=== PATIENT | female | born 1970 | race Caucasian/White ===

== ENCOUNTER 2017-01-04 08:28 | Day surgery (SDC) | payer MEDICAID ==
[~2017-01-04 08:28] MED LIST: Acetaminophen/HYDROcodone 325-5 MG Tab PO PRN; Lactated Ringers 1,000 ML IV SCH; Sodium Chloride 0.9% 10 ML Syringe FLUSH PRN; ceFAZolin 1 GM in Sodium Chloride 0.9% 50 ML IV ONE
[2017-01-04] MEDS ORDERED: ceFAZolin 1 GM in Sodium Chloride 0.9% 100 ML IV SCH (09:30)
[2017-01-04] MEDS ORDERED: ceFAZolin 1 GM in Sodium Chloride 0.9% 100 ML IV ONE (09:30)
[2017-01-04] MEDS ORDERED: Midazolam 1 MG/ML 5 ML SDV ONE (12:20)
[2017-01-04] MEDS ORDERED: Lidocaine 0.5% 50 ML SDV ONE (12:20)
[2017-01-04 15:12] VITALS: BP 132/60
--- NOTE | 2017-01-08 07:06 | OR ---
DATE OF OPERATION: 01/04/2017 PREOPERATIVE DIAGNOSIS: Right trigger thumb. POSTOPERATIVE DIAGNOSIS: Right trigger thumb. PROCEDURE PERFORMED: Right trigger thumb release. ANESTHESIA: General. HASH SLINGER: Shayne Prado RN. SPECIMENS: None. DRAINS: None. ESTIMATED BLOOD LOSS: Minimal. COMPLICATIONS: None apparent. DESCRIPTION OF PROCEDURE: After informed consent was obtained, the patient was brought to the operating room where a [place] block was performed uneventfully. . The right upper extremity was prepped and draped sterilely, a time out was held, and antibiotics were confirmed. I opened the skin sharply in a transverse fashion over the A1 heriberto dissecting sharply through the skin with scissor dissection through the subcutaneous tissue to protect the neurovascular structures. The A1 heriberto was identified and released longitudinally. We are then able to demonstrate all flexion and extension without triggering. We copiously irrigated and closed with 4-0 nylon, sterile dressings were applied, and she was brought to the recovery room in stable condition. VINNIE/WENDI /[id number]
== END 2017-01-04 14:50 | disposition home or self-care (01) ==
LOC: LB.SDS 08:28
PROVIDERS: ATTEND Orthopaedic Surgery
DX: M65.311 Trigger thumb, right thumb (principal)
CPT/HCPCS: 26055; A9270; J0690; J2250; J7030

== ENCOUNTER 2017-03-23 21:42 | Emergency (ER) | payer OTHER, MEDICAID ==
[~2017-03-23 21:42] MED LIST changes: -Acetaminophen/HYDROcodone 325-5 MG Tab PO PRN; +Cephalexin 500 MG Cap ONE; -Lactated Ringers 1,000 ML IV SCH; -Sodium Chloride 0.9% 10 ML Syringe FLUSH PRN; -ceFAZolin 1 GM in Sodium Chloride 0.9% 50 ML IV ONE
--- NOTE | 2017-03-25 09:51 | ER ---
HISTORY OF PRESENT ILLNESS: The patient presented to the ER with an abrasion and laceration that was couple days old on her right elbow area. 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 She kept the area clean. There has been no further bleeding; however, she does have concern that there could be early infection starting. The patient is therefore here for evaluation of her wound. REVIEW OF SYSTEMS: CONSTITUTIONAL: The patient has had no fever or fatigue or weight loss. EYES: No vision changes. ENT: No ENT complaints of sore throat or ear pain or congestion. CARDIAC: No chest pain or palpitations. RESPIRATORY: No cough, shortness of breath, or wheezing. GASTROINTESTINAL: No nausea, vomiting, diarrhea, or heartburn. No dysuria. MUSCULOSKELETAL: No joint pains or limitations of motion. SKIN: No rashes other than her wound. Neurologic: No complaints of headache, weakness, or numbness. Psychiatric: No complaints of anxiety or depression. PHYSICAL EXAMINATION: GENERAL: Reveals a well-developed, well-nourished female. She is alert, she is oriented x3. She is in no acute distress. VITAL SIGNS: Temperature is 98.3, blood pressure is 132/68, pulse is 73, respirations 16. EYES: With normal conjunctivae and lids. NOSE: Clear. NECK: Supple. No thyromegaly. LYMPH: Exam is negative. EXTREMITIES: No limitations of motion. No joint inflammation. Her elbow is functioning completely normally. SKIN: Shows an abrasion with a small laceration present and a very small puncture, laceration is about 3 cm. No obvious signs of infection at this time. There is some discoloration due to bruising in the area. NEUROLOGICAL: Everything seems to be intact. She is able to move her extremities without any problems. Her cranial nerves are all intact. PSYCHIATRIC: Her judgment is normal. Memory is intact. She is oriented. ASSESSMENT: Laceration, abrasion, and contusion of her right elbow area. She was started on Keflex 500 mg p.o. t.i.d. for 7 days. She will follow up in clinic in about 48 hours for a wound check. The patient is current with her tetanus, and no tetanus shot was administered. SELINA/WENDI /[id number]
== END 2017-03-23 22:35 | disposition home or self-care (01) ==
LOC: LB.ED 21:42
DX: S51.011A Laceration without foreign body of right elbow, initial encounter (principal); W26.8XXA Contact with other sharp object(s), not elsewhere classified, initial encounter; Y99.0 Civilian activity done for income or pay
CPT/HCPCS: 99283; A9270

== ENCOUNTER 2017-07-16 21:40 | Emergency (ER) | payer MEDICAID ==
[2013-07-23 09:47] VITALS: BP 134/78
[2017-07-16] MEDS ORDERED: Acetaminophen/Codeine 300-30 MG Tab ONE (22:50)
[2017-07-16] MEDS ORDERED: Amoxicillin 500 MG Cap ONE (22:50)
--- NOTE | 2017-07-16 23:17 | EDM.PDOC ---
ED HPI GENERAL MEDICAL PROBLEM - General Chief Complaint: ENT Problem Stated Complaint: toothache Time Seen by Provider: 07/16/17 22:30 Source of Information: Reports: Patient History Limitations: Reports: No Limitations - History of Present Illness INITIAL COMMENTS - FREE TEXT/NARRATIVE: According to patient she has been having pain her right upper premolar tooth since last evening. She claims her dentist office is closed on wednesday. She did try taking ibuprofen and not better. Over the day she claims pain has gone form dull achy to throbbing now. No fever or chills. No swelling of the face. She claims she has appointment on wednesday for possible tooth excision. No fever or chills. No nausea or vomiting. Duration: Day(s): (2), Getting Worse Location: Reports: Other (tooth) Quality: Reports: Ache Severity: Moderate Improves with: Reports: None Worsens with: Reports: None Associated Symptoms: Denies: Fever/Chills, Loss of Appetite, Nausea/Vomiting, Rash, Weakness - Related Data Allergies Allergy/AdvReac Type Severity Reaction Status Date / Time No Known Allergies Allergy Verified 03/24/17 03:49 Home Meds: Home Meds Escitalopram [Lexapro] 5 mg PO DAILY 07/08/13 [History] Clindamycin Phosphate [Clindamycin Phosphate] 30 gm 07/23/13 [History] Hydrochlorothiazide [Hydrochlorothiazide] 25 mg PO DAILY 07/23/13 [History] Minocycline [Minocin] 100 mg PO DAILY 07/23/13 [History] Omeprazole [Omeprazole] 20 mg PO DAILY 07/23/13 [History] Past Medical History Gastrointestinal History: Reports: GERD 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 Dermatologic History: acne - Past Surgical History HEENT Surgical History: Reports: Other (See Below) Female Surgical History: Reports: Lithotripsy/ESWL Other Musculoskeletal Surgeries/Procedures:: left wrist pain numbness carpel tunnel syndrome Social & Family History - Family History Family Medical History: Noncontributory - Tobacco Use Smoking Status *Q: Current Every Day Smoker Years of Tobacco use: 22 Packs/Tins Daily: 1 Used Tobacco, but Quit: Yes Month Tobacco Last Used: 10/2012 Second Hand Smoke Exposure: Yes - Caffeine Use Caffeine Use: Reports: Coffee, Soda, Tea - Alcohol Use Days Per Week of Alcohol Use: 1 Number of Drinks Per Day: 1 Total Drinks Per Week: 1 - Recreational Drug Use Recreational Drug Use: No Drug Use in Last 12 Months: No ED ROS GENERAL - Review of Systems Review Of Systems: See Below Constitutional: Denies: Fever, Chills HEENT: Reports: Dental Pain. Denies: Rhinitis, Throat Pain, Throat Swelling Respiratory: Denies: Shortness of Breath, Wheezing, Cough, Sputum Cardiovascular: Denies: Chest Pain, Lightheadedness GI/Abdominal: Denies: Nausea, Vomiting Musculoskeletal: Denies: Joint Pain, Joint Swelling Skin: Denies: Bruising, Pruritis, Rash ED EXAM, GENERAL - Physical Exam Exam: See Below Exam Limited By: No Limitations General Appearance: Alert, WD/WN, No Apparent Distress Eye Exam: Bilateral Eye: EOMI, PERRL Ears: Normal External Exam, Normal Canal, Hearing Grossly Normal, Normal TMs Ear Exam: Bilateral Ear: Auricle Normal, Canal Normal, TM normal Nose: Normal Inspection, Normal Mucosa, No Blood Throat/Mouth: Normal Oropharynx, Normal Voice, Other (Pt does have loss of molar teeth in all four quadrants. There is filing seen on the right upper premolar tooth. tender to percussion of the tooth. poor oral hygiene.) Head: Atraumatic, Normocephalic Neck: Normal Inspection, Supple, Non-Tender, Full Range of Motion Course - Vital Signs Text/Narrative:: Pt does have very poor oral hygiene. There is loss of several teeth. also she has tender right upper premolar with caries and filing. Pt has tooth infection. O I have started her on amox 500mg 3 times daily. Continue ibuprofen 600mg 3 times daily. Tylenol #3 1 every 8 hrs as needed for pain. Advised to followup with her dentist on Wednesday morning. Departure - Departure Time of Disposition: 23:00 Disposition: Home, Self-Care 01 Condition: Fair Clinical Impression: Tooth infection - Discharge Information Instructions: Acetaminophen; Codeine tablets Referrals: PCP,None [Primary Care Provider] - Forms: ED Department Discharge Additional Instructions: Follow up with dentist as soon as possible. Take Amoxicillin 1 tablet three times a day for 10 days. May take Tylenol with Codeine 1 tablet every 8 hours as needed for pain. - Problem List & Annotations (1) Tooth infection SNOMED Code(s): 843536194 Code(s): K04.7 - PERIAPICAL ABSCESS WITHOUT SINUS Status: Acute Current Visit: Yes - Problem List Review Problem List Initiated/Reviewed/Updated: Yes - Assessment/Plan Assessment:: tooth infection Plan: Pt does have very poor oral hygiene. There is loss of several teeth. also she has tender right upper premolar with caries and filling. Pt has tooth infection. O I have started her on amox 500mg 3 times daily. Continue ibuprofen 600mg 3 times daily. Tylenol #3 1 every 8 hrs as needed for pain. Advised to followup with her dentist on Wednesday morning.
[2017-07-16 23:44] VITALS: BP 114/72
== END 2017-07-16 23:03 | disposition home or self-care (01) ==
LOC: LB.ED 21:40
DX: K04.7 Periapical abscess without sinus (principal); F17.210 Nicotine dependence, cigarettes, uncomplicated; K21.9 Gastro-esophageal reflux disease without esophagitis; Z79.899 Other long term (current) drug therapy
CPT/HCPCS: 99282; A9270-GY

== ENCOUNTER 2017-08-01 12:24 | Emergency (ER) | payer MEDICAID ==
[2013-07-23 09:47] VITALS: BP 134/78
[~2017-08-01 12:24] MED LIST changes: -Cephalexin 500 MG Cap ONE; +Ciprofloxacin 500 MG Tab ONE; +Ondansetron 4 MG Tab.DIS ONE
[2017-08-01] MEDS ORDERED: Ketorolac 30 MG/ML SDV IVPUSH ONE (12:36)
[2017-08-01] MEDS ORDERED: Ondansetron 4 MG/2 ML SDV IVPUSH ONE (12:37)
[2017-08-01] MEDS ORDERED: Sodium Chloride 0.9% 1,000 ML IV SCH (12:45)
[2017-08-01] MEDS ORDERED: Ondansetron 4 MG/2 ML SDV ONE (12:51)
[2017-08-01] MEDS ORDERED: Ketorolac 30 MG/ML SDV ONE (12:51)
[2017-08-01 13:04] VITALS: BP 141/71
--- NOTE | 2017-08-01 14:06 | EDM.PDOC ---
ED HPI GENERAL MEDICAL PROBLEM - General Chief Complaint: General Stated Complaint: Kidney Stone? Time Seen by Provider: 08/01/17 12:27 Source of Information: Reports: Patient History Limitations: Reports: No Limitations - History of Present Illness INITIAL COMMENTS - FREE TEXT/NARRATIVE: Patient is a 47 year old woman who has had kidney stones for 15 years. In the last month she has had chronic right flank pain. Yesterday the pain got worse and she started vomiting. These are the symptoms that occur when she passes a kidney stone and she had to leave work. Her right flank is better today and her pain is at a 3/10 level with just a little nausea. She thinks the stone has passed but would like to be evaluated and needs some treatment for the pain and nausea. Onset: Gradual Onset Date: 07/02/17 Onset Time: 07:00 Duration: Week(s): (4) Location: Reports: Back (Right flank area. Occassionally radiates to the right groin.) Quality: Reports: Same as Previous Episode, Sharp, Stabbing, Throbbing Severity: Mild Improves with: Reports: Medication Worsens with: Reports: None Context: Reports: Other (Chronic in nature.) Associated Symptoms: Reports: Nausea/Vomiting - Related Data Allergies Allergy/AdvReac Type Severity Reaction Status Date / Time No Known Allergies Allergy Verified 07/16/17 23:59 Home Meds: Home Meds Escitalopram [Lexapro] 10 mg PO DAILY 07/08/13 [History] Hydrochlorothiazide [Hydrochlorothiazide] 25 mg PO DAILY 07/23/13 [History] Minocycline [Minocin] 100 mg PO DAILY 07/23/13 [History] Pravastatin Sodium [Pravastatin Sodium] 20 mg PO QPM 07/16/17 [History] Ranitidine HCl [Ranitidine HCl] 300 mg PO DAILY 07/16/17 [History] Past Medical History Cardiovascular History: Reports: High Cholesterol Gastrointestinal History: Reports: GERD Genitourinary History: Reports: Renal Calculus 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: Musculoskeletal History: Reports: Back Pain, Chronic, Other (See Below) Other Musculoskeletal History: carpal tunnel syndrome Psychiatric History: Reports: Depression Other Dermatologic History: acne - Past Surgical History HEENT Surgical History: Reports: Other (See Below) Other HEENT Surgeries/Procedures: Submandibular gland removed Female Surgical History: Reports: Lithotripsy/ESWL Musculoskeletal Surgical History: Reports: Carpal Tunnel Other Musculoskeletal Surgeries/Procedures:: left wrist pain numbness carpel tunnel syndrome, Bilat Carpal Tunnel Release Social & Family History - Family History Family Medical History: Noncontributory - Tobacco Use Smoking Status *Q: Current Every Day Smoker Years of Tobacco use: 22 Packs/Tins Daily: 1 Used Tobacco, but Quit: Yes Month Tobacco Last Used: 10/2012 Second Hand Smoke Exposure: Yes - Caffeine Use Caffeine Use: Reports: Coffee, Soda, Tea - Alcohol Use Days Per Week of Alcohol Use: 1 Number of Drinks Per Day: 1 Total Drinks Per Week: 1 - Recreational Drug Use Recreational Drug Use: No Drug Use in Last 12 Months: No ED ROS GENERAL - Review of Systems Review Of Systems: See Below Constitutional: Reports: No Symptoms HEENT: Reports: No Symptoms Respiratory: Reports: No Symptoms Cardiovascular: Reports: No Symptoms Endocrine: Reports: No Symptoms GI/Abdominal: Reports: No Symptoms : Reports: Flank Pain, Frequency Musculoskeletal: Reports: Back Pain Skin: Reports: No Symptoms Neurological: Reports: No Symptoms Psychiatric: Reports: No Symptoms Hematologic/Lymphatic: Reports: No Symptoms Immunologic: Reports: No Symptoms ED EXAM, GENERAL - Physical Exam Exam: See Below Exam Limited By: No Limitations General Appearance: Alert, WD/WN, No Apparent Distress Eye Exam: Bilateral Eye: EOMI, Normal Fundi, Normal Inspection, PERRL Ears: Normal External Exam, Normal Canal, Hearing Grossly Normal, Normal TMs Ear Exam: Bilateral Ear: Auricle Normal, Canal Normal, TM normal Nose: Normal Inspection, Normal Mucosa, No Blood Throat/Mouth: Normal Inspection Head: Atraumatic, Normocephalic Neck: Normal Inspection, Supple, Non-Tender, Full Range of Motion Respiratory/Chest: No Respiratory Distress, Lungs Clear, Normal Breath Sounds, No Accessory Muscle Use, Chest Non-Tender Cardiovascular: Normal Peripheral Pulses, Regular Rate, Rhythm, No Edema, No Gallop, No JVD, No Murmur, No Rub GI/Abdominal: Normal Bowel Sounds Back Exam: CVA Tenderness (R) Extremities: Normal Inspection, Normal Range of Motion, Non-Tender, Normal Capillary Refill, No Pedal Edema Neurological: Alert, Oriented, CN II-XII Intact, Normal Cognition, Normal Gait, Normal Reflexes, No Motor/Sensory Deficits Psychiatric: Normal Affect, Normal Mood Skin Exam: Warm, Dry, Intact, Normal Color, No Rash Lymphatic: No Adenopathy Course - Vital Signs Text/Narrative:: Uneventful ED course. She had no pain after the IV Toradol and Zofran and felt much better. The IV fluids also helped her feel better. She had an elevated WBC , Blood and Leukocytes in the Urine and multiple kidney stones in both kidneys on CT scan of her abdomen and pelvis. She will be sent home on Cipro 500 mg po bid x 3 days, Tylenol 500 mg po q 4 hours, Ibuprofen 800 mg po with food q 6 hours, Zofran 4 mg po q 8 hours and she will push water and screen all of her urine and collect stones for evaluation. She will follow up with Dr. Leroy or colleague in 2 days and will then get set up to see Nephrology and Urology to treat the stones definitively. Recheck here prn. Last Recorded V/S: Last Vital Signs Temp 36.6 C 08/01/17 13:01 Pulse 69 08/01/17 13:01 Resp 20 08/01/17 13:01 BP 141/71 H 08/01/17 13:01 Pulse Ox 100 08/01/17 13:01 - Orders/Labs/Meds Orders: Active Orders 24 hr Category Date Time Status Abdomen Pelvis wo Cont [CT] Stat Exams 08/01/17 12:34 Taken URINALYSIS W/MICROSCOPIC [UA W/MICROSCOPIC] [URIN] Stat Lab 08/01/17 13:46 Uncollected Sodium Chloride 0.9% [Normal Saline] 1,000 ml Med 08/01/17 12:45 Active IV ASDIRECTED Medication Orders Sodium Chloride (Normal Saline) 1,000 mls @ 999 mls/hr IV ASDIRECTED VINCENT Last Admin: 08/01/17 12:40 Dose: 999 mls/hr Labs: Laboratory Tests 08/01/17 08/01/17 08/01/17 Range/Units 12:33 12:40 12:40 WBC 14.9 H (4.0-11.0) K/uL RBC 4.85 (3.80-5.80) M/uL Hgb 14.7 (11.5-16.5) g/dL Hct 42.6 (37.0-47.0) % MCV 88 (76-96) fL MCH 30.3 (27.0-32.0) pg MCHC 34.5 (31.0-35.0) g/dL RDW 12.5 (11.0-16.0) % Plt Count 226 (150-500) K/uL MPV 10.2 H (6.0-10.0) fL Neut % (Auto) 69.6 (45.0-70.0) % Lymph % (Auto) 22.5 (20.0-40.0) % [place] % (Auto) 6.8 (3.0-10.0) % Eos % (Auto) 0.9 L (1.0-5.0) % Baso % (Auto) 0.2 (0.0-0.5) % Neut # (Auto) 10.36 H (2.00-7.50) K/uL Lymph # (Auto) 3.35 (1.50-4.00) K/uL [place] # (Auto) 1.02 H (0.20-0.80) K/uL Eos # (Auto) 0.14 (0.04-0.40) K/uL Baso # (Auto) 0.03 (0.02-0.10) K/uL Sodium 138 (136-145) mmol/L Potassium 4.5 (3.5-5.1) mmol/L Chloride 103 (98-107) mmol/L Carbon Dioxide 27.5 (21.0-32.0) mmol/L Anion Gap 12.0 (5.0-15.0) mmol/L BUN 14 (8-26) mg/dL Creatinine 0.77 (0.55-1.02) mg/dL Est Cr Clr Drug Dosing TNP Estimated GFR (MDRD) > 60 (>60) MLS/MIN BUN/Creatinine Ratio 18.2 (6-25) Glucose 96 (74-100) mg/dL Calcium 8.7 (8.5-10.1) mg/dL Total Bilirubin 0.6 (0.0-1.0) mg/dL AST 15 (15-37) U/L ALT 19 (12-78) U/L Alkaline Phosphatase 64 (46-116) U/L Total Protein 6.9 (6.4-8.2) g/dL Albumin 3.6 (3.4-5.0) g/dL Globulin 3.3 (2.2-4.2) g/dL Albumin/Globulin Ratio 1.1 (0.8-2.0) Urine Color Yellow Urine Appearance Clear (CLEAR) Urine pH 5.5 (5.0-8.0) Ur Specific [place] 1.020 (1.003-1.030) Urine Protein Negative (NEGATIVE) mg/dL Urine Glucose (UA) Negative (NEGATIVE) mg/dL Urine Ketones Negative (NEGATIVE) mg/dL Urine Occult Blood Trace-intact H (NEGATIVE) Urine Nitrite Negative (NEGATIVE) Urine Bilirubin Negative (NEGATIVE) Urine Urobilinogen 0.2 (0.2-1.0) E.U./dL Ur Leukocyte Esterase Trace H (NEGATIVE) Urine RBC 5-10 H /HPF Urine WBC 0-5 H /HPF Ur Squamous Epith Cells Few /HPF Urine Bacteria Few /HPF Meds: Medications Generic Name Dose Route Start Last Admin Trade Name Freq PRN Reason Stop Dose Admin Sodium Chloride 1,000 mls @ 999 mls/hr 08/01/17 12:45 08/01/17 12:40 Normal Saline IV 999 mls/hr ASDIRECTED VINCENT Administration Discontinued Medications Generic Name Dose Route Start Last Admin Trade Name Freq PRN Reason Stop Dose Admin Ketorolac Tromethamine 30 mg 08/01/17 12:36 08/01/17 12:48 Toradol IVPUSH 08/01/17 12:37 30 mg ONETIME ONE Administration Ketorolac Tromethamine Confirm 08/01/17 12:51 08/01/17 13:09 Toradol Administered 08/01/17 12:52 Not Given Dose 30 mg .ROUTE .STK-MED ONE Ondansetron HCl 4 mg 08/01/17 12:37 08/01/17 12:49 Zofran IVPUSH 08/01/17 12:38 4 mg ONETIME ONE Administration Ondansetron HCl Confirm 08/01/17 12:51 08/01/17 13:09 Zofran Administered 08/01/17 12:52 Not Given Dose 4 mg .ROUTE .STK-MED ONE Departure - Departure Time of Disposition: 14:14 Disposition: Home, Self-Care 01 Condition: Good Clinical Impression: Kidney stones, UTI (urinary tract infection) - Discharge Information Referrals: PCP,None [Primary Care Provider] - - My Orders Last 24 Hours: My Active Orders 08/01/17 12:34 Abdomen Pelvis wo Cont [CT] Stat 08/01/17 12:45 Sodium Chloride 0.9% [Normal Saline] 1,000 ml IV ASDIRECTED 08/01/17 13:46 URINALYSIS W/MICROSCOPIC [UA W/MICROSCOPIC] [URIN] Stat - Assessment/Plan Last 24 Hours: My Active Orders 08/01/17 12:34 Abdomen Pelvis wo Cont [CT] Stat 08/01/17 12:45 Sodium Chloride 0.9% [Normal Saline] 1,000 ml IV ASDIRECTED 08/01/17 13:46 URINALYSIS W/MICROSCOPIC [UA W/MICROSCOPIC] [URIN] Stat
--- NOTE | 2017-08-02 11:13 | CT ---
DATE OF SERVICE: 08/01/2017 CLINICAL DATA: Right sided renal colic. UNENHANCED ABDOMEN AND PELVIC CT Multislice acquisition through the abdomen and pelvis without IV or oral contrast was performed. Comparison is made to a prior unenhanced abdomen and pelvic CT dated 06/10/2017. The lung bases are clear. There is a small hiatal hernia. The unenhanced liver appears normal. The gallbladder appears normal. The spleen appears normal. The pancreas appears normal. The right and left adrenals appear normal. There are multiple nonobstructing renal calculi bilaterally. No hydronephrosis or hydroureter. No evidence of ureterolithiasis. There are low density lesions in both kidneys consistent with bilateral renal cysts. The bladder is partially fluid filled and appears normal. There is an IUD noted within the uterus. There are low density lesions in both ovaries consistent with bilateral ovarian cysts. The appendix is not dilated. No evidence of appendicitis. There is mild diverticulosis of the descending and sigmoid colon. No evidence of diverticulitis. There is an umbilical hernia containing fat. No free air. No free fluid. No dilated loops of bowel. No adenopathy. No aortic aneurysm. IMPRESSION: Nonobstructing bilateral renal calculi. No acute abnormalities. Other findings as discussed above. [id number] [facility]
== END 2017-08-01 14:18 | disposition home or self-care (01) ==
LOC: LB.ED 12:24
DX: N20.0 Calculus of kidney (principal); N39.0 Urinary tract infection, site not specified; E78.00 Pure hypercholesterolemia, unspecified; K21.9 Gastro-esophageal reflux disease without esophagitis; F32.9 Major depressive disorder, single episode, unspecified; F17.210 Nicotine dependence, cigarettes, uncomplicated; Z79.899 Other long term (current) drug therapy
CPT/HCPCS: 36415; 74176; 80053; 81001; 85025; 87086; 96361; 96374; 96375; 99284; A9270; J1885; J2405; J7040

== ENCOUNTER 2017-11-29 21:50 | Emergency (ER) | payer MEDICAID ==
[2013-07-23 09:47] VITALS: BP 134/78
[~2017-11-29 21:50] MED LIST changes: +Amoxicillin 500 MG Cap ONE; -Ciprofloxacin 500 MG Tab ONE; -Ondansetron 4 MG Tab.DIS ONE
--- NOTE | 2017-11-29 22:16 | EDM.PDOC ---
ED HPI GENERAL MEDICAL PROBLEM - General Chief Complaint: ENT Problem Stated Complaint: EARACHE Time Seen by Provider: 11/29/17 21:55 Source of Information: Reports: Patient, RN History Limitations: Reports: No Limitations - History of Present Illness INITIAL COMMENTS - FREE TEXT/NARRATIVE: 47 yr female presents with sore throat and ear pain for a few days now and worse tonight. States she has been so tired with this and goes to work and then goes to sleep as soon as getting home. No temperature and no chills. States no allergies, no cough, no head ache. Pt is eating and drinking fluids well. States a few years ago she did have surgery to her neck and had a lymph node removed to neck per ENT. 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: Musculoskeletal History: Reports: Back Pain, Chronic, Other (See Below) Other Musculoskeletal History: carpal tunnel syndrome Psychiatric History: Reports: Depression Other Dermatologic History: acne - Past Surgical History HEENT Surgical History: Reports: Other (See Below) Other HEENT Surgeries/Procedures: Submandibular gland removed Female Surgical History: Reports: Lithotripsy/ESWL Musculoskeletal Surgical History: Reports: Carpal Tunnel Other Musculoskeletal Surgeries/Procedures:: left wrist pain numbness carpel tunnel syndrome, Bilat Carpal Tunnel Release Social & Family History - Family History Family Medical History: Noncontributory - Tobacco Use Smoking Status *Q: Current Every Day Smoker Years of Tobacco use: 22 Packs/Tins Daily: 1 Used Tobacco, but Quit: Yes Month Tobacco Last Used: 10/2012 Second Hand Smoke Exposure: Yes - Caffeine Use Caffeine Use: Reports: Coffee, Soda, Tea - Alcohol Use Days Per Week of Alcohol Use: 1 Number of Drinks Per Day: 1 Total Drinks Per Week: 1 - Recreational Drug Use Recreational Drug Use: No Drug Use in Last 12 Months: No ED ROS ENT - Review of Systems Review Of Systems: See Below Constitutional: Denies: Fever, Chills HEENT: Reports: Ear Pain, Throat Pain Respiratory: Reports: No Symptoms Cardiovascular: Reports: No Symptoms GI/Abdominal: Reports: No Symptoms ED EXAM, ENT - Physical Exam Exam: See Below Exam Limited By: No Limitations General Appearance: Alert, No Apparent Distress Eye Exam: Bilateral Eye: PERRL Ears: Normal TMs, TM Bulging (right TM bulging) Mouth/Throat: Pharyngeal Erythema, Throat Pain. No: Uvular Deviation Neck: Supple, Other (Tender to left neck area, lymphadenopathy noted.) Respiratory/Chest: No Respiratory Distress, Lungs Clear, Normal Breath Sounds Cardiovascular: Regular Rate, Rhythm Course - Orders/Labs/Meds Orders: Active Orders 24 hr Category Date Time Status STREP SCREEN A RAPID [RM] Stat Lab 11/29/17 22:09 Ordered - Re-Assessments/Exams Free Text/Narrative Re-Assessment/Exam: 11/29/17 22:23 Pharyngitis with otitis serous. Recommend Amoxicillin 500 mg tid X 5 days. Loratidine 10 mg PO daily for 1-2 weeks.. Follow-up in clinic if symptoms persist or worsen. Continue with tylenol as needed, rest and fluids to prevent dehydration. Departure - Departure Time of Disposition: 22:25 Disposition: Home, Self-Care 01 Condition: Good Clinical Impression: Pharyngitis, Otitis media, serous, acute - Discharge Information Instructions: Sinusitis, Adult, [id number] Forms: ED Department Discharge Additional Instructions: Take amoxicillin 3 times a day for 5 days. Can take Claritin daily. Follow up in clinic if pain worsens or persists after 2 to 3 days. - My Orders Last 24 Hours: My Active Orders 11/29/17 22:09 STREP SCREEN A RAPID [RM] Stat - Assessment/Plan Last 24 Hours: My Active Orders 11/29/17 22:09 STREP SCREEN A RAPID [RM] Stat
[2017-11-30 01:51] VITALS: BP 132/75
== END 2017-11-29 22:25 | disposition home or self-care (01) ==
LOC: LB.ED 21:50
DX: J02.9 Acute pharyngitis, unspecified (principal); H65.91 Unspecified nonsuppurative otitis media, right ear; E78.00 Pure hypercholesterolemia, unspecified; F17.210 Nicotine dependence, cigarettes, uncomplicated; Z79.899 Other long term (current) drug therapy
CPT/HCPCS: 87430; 99283; A9270

== ENCOUNTER 2018-05-15 00:16 | Emergency (ER) | payer MEDICAID ==
--- NOTE | 2018-05-15 02:45 | EDM.PDOC ---
ED HPI GENERAL MEDICAL PROBLEM - General Chief Complaint: General Stated Complaint: INFECTED INCISION Time Seen by Provider: 05/15/18 00:45 Source of Information: Reports: Patient History Limitations: Reports: No Limitations - History of Present Illness INITIAL COMMENTS - FREE TEXT/NARRATIVE: Patient had a partial nephrectomy on the right for kidney cancer on April 14, 2018. She has had a cellulitis and skin infection start 4 days ago. Christina Kurtz started her on Bactrim 2 days ago but it was getting a larger area of redness around the wound and she was worried. It also is sore and warm. Onset: Today, Gradual Onset Date: 05/11/18 Onset Time: 08:00 Duration: Day(s): (4) Location: Reports: Abdomen Quality: Reports: Ache Severity: Mild Improves with: Reports: None Worsens with: Reports: None Context: Reports: Other (Recent surgery.) Associated Symptoms: Reports: No Other Symptoms Treatments TAR WORKER: Reports: Other (see below) Other Treatments TAR WORKER: Bactrim and warm packs - Related Data Allergies Allergy/AdvReac Type Severity Reaction Status Date / Time No Known Allergies Allergy Verified 07/16/17 23:59 Home Meds: Home Meds Escitalopram [Lexapro] 10 mg PO DAILY 07/08/13 [History] Hydrochlorothiazide 25 mg PO DAILY 07/23/13 [History] Minocycline [Minocin] 100 mg PO DAILY 07/23/13 [History] Pravastatin Sodium 20 mg PO QPM 07/16/17 [History] Past Medical History Cardiovascular History: Reports: High Cholesterol Gastrointestinal History: Reports: GERD 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: 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: Musculoskeletal History: Reports: Back Pain, Chronic, Other (See Below) Other Musculoskeletal History: carpal tunnel syndrome Psychiatric History: Reports: Depression Other Dermatologic History: acne - Past Surgical History HEENT Surgical History: Reports: Other (See Below) Other HEENT Surgeries/Procedures: Submandibular gland removed Female Surgical History: Reports: Lithotripsy/ESWL Musculoskeletal Surgical History: Reports: Carpal Tunnel Other Musculoskeletal Surgeries/Procedures:: left wrist pain numbness carpel tunnel syndrome, Bilat Carpal Tunnel Release Social & Family History - Family History Family Medical History: Noncontributory - Caffeine Use Caffeine Use: Reports: Coffee, Soda, Tea ED ROS GENERAL - Review of Systems Review Of Systems: See Below Constitutional: Reports: No Symptoms HEENT: Reports: No Symptoms Respiratory: Reports: No Symptoms Cardiovascular: Reports: No Symptoms Endocrine: Reports: No Symptoms GI/Abdominal: Reports: No Symptoms : Reports: No Symptoms Musculoskeletal: Reports: No Symptoms Skin: Reports: Erythema, Wound Neurological: Reports: No Symptoms Psychiatric: Reports: No Symptoms Hematologic/Lymphatic: Reports: No Symptoms Immunologic: Reports: No Symptoms ED EXAM, GENERAL - Physical Exam Exam: See Below Exam Limited By: No Limitations General Appearance: Alert, WD/WN, No Apparent Distress Eye Exam: Bilateral Eye: EOMI, Normal Fundi, Normal Inspection Ears: Normal External Exam, Normal Canal, Hearing Grossly Normal, Normal TMs Ear Exam: Bilateral Ear: Auricle Normal, Canal Normal, TM normal Nose: Normal Inspection, Normal Mucosa, No Blood Throat/Mouth: Normal Inspection, Normal Lips, Normal Teeth, Normal Gums, Normal Oropharynx, Normal Voice, No Airway Compromise Head: Atraumatic, Normocephalic Neck: Normal Inspection, Supple, Non-Tender, Full Range of Motion Respiratory/Chest: No Respiratory Distress, Lungs Clear, Normal Breath Sounds, No Accessory Muscle Use, Chest Non-Tender Cardiovascular: Normal Peripheral Pulses, Regular Rate, Rhythm, No Edema, No Gallop, No JVD, No Murmur, No Rub GI/Abdominal: Normal Bowel Sounds, Soft, Non-Tender, No Organomegaly, No Distention, No Abnormal Bruit, No Mass Extremities: Normal Inspection, Normal Range of Motion, Non-Tender, Normal Capillary Refill, No Pedal Edema Neurological: Alert, Oriented, CN II-XII Intact, Normal Cognition, Normal Gait, Normal Reflexes, No Motor/Sensory Deficits Psychiatric: Normal Affect, Normal Mood Skin Exam: Erythema, Increased Warmth, Rash (Over wound on right lower abdomen. Able to drain purulent material from wound.) Lymphatic: No Adenopathy Course - Vital Signs Text/Narrative:: Uneventfulr ED course. WBC mildly elevated and CT abdomen shows that this is just a cellulitis and not a large abdominal abscess. She will continue with Bactrim DS 1 po bid for 10 full days, rest, warm pack the wound, and recheck prn. - Orders/Labs/Meds Orders: Active Orders 24 hr Category Date Time Status Abdomen wo Cont [CT] Stat Exams 05/15/ 00:54 Taken CULTURE WOUND + SMEAR [RM] Stat Lab 05/15/18 01:00 Received Labs: Laboratory Tests 05/15/18 Range/Units 01:00 WBC 12.6 H (4.0-11.0) K/uL RBC 4.48 (3.80-5.80) M/uL Hgb 13.6 (11.5-16.5) g/dL Hct 39.0 (37.0-47.0) % MCV 87 (76-96) fL MCH 30.4 (27.0-32.0) pg MCHC 34.9 (31.0-35.0) g/dL RDW 12.0 (11.0-16.0) % Plt Count 274 (150-500) K/uL MPV 10.1 H (6.0-10.0) fL Neut % (Auto) 56.4 (45.0-70.0) % Lymph % (Auto) 30.2 (20.0-40.0) % [place] % (Auto) 8.2 (3.0-10.0) % Eos % (Auto) 5.0 (1.0-5.0) % Baso % (Auto) 0.2 (0.0-0.5) % Neut # (Auto) 7.09 (2.00-7.50) K/uL Lymph # (Auto) 3.79 (1.50-4.00) K/uL [place] # (Auto) 1.03 H (0.20-0.80) K/uL Eos # (Auto) 0.63 H (0.04-0.40) K/uL Baso # (Auto) 0.03 (0.02-0.10) K/uL Departure - Departure Time of Disposition: 02:48 Disposition: Home, Self-Care 01 Condition: Good Clinical Impression: Wound infection after surgery Qualifiers: Encounter type: sequela Qualified Code(s): T81.4XXS - Infection following a procedure, sequela - Discharge Information Referrals: PCP,None [Primary Care Provider] - - My Orders Last 24 Hours: My Active Orders 05/15/18 00:54 Abdomen wo Cont [CT] Stat 05/15/18 01:00 CULTURE WOUND + SMEAR [RM] Stat - Assessment/Plan Last 24 Hours: My Active Orders 05/15/18 00:54 Abdomen wo Cont [CT] Stat 05/15/18 01:00 CULTURE WOUND + SMEAR [RM] Stat
--- NOTE | 2018-05-16 04:06 | CT ---
UNENHANCED ABDOMEN CT 05/15/18 Comparison is made to a prior abdomen and pelvic CT dated 01/07/18. The lung bases are clear. The liver appears normal. The gallbladder appears normal. The spleen appears normal. The pancreas appears normal. The right and left adrenals appear normal. There are nonobstructing renal calculi bilaterally. There is a 14 mm rounded low density lesion projecting from the left renal cortex consistent with a cyst. The right kidney appears mildly swollen compared to the right. There is also perinephric fat stranding. There is hyperdense material within the right kidney which is probably related to the prior surgery. No hydronephrosis or hydroureter. There is a small umbilical hernia containing fat. The appendix is not dilated No evidence of appendicitis. There is a large amount of stool noted within the visualized colon. No free air. No free fluid. No dilated loops of bowel. No adenopathy. No aortic aneurysm. There is fat stranding within the subcutaneous fat of the anterior abdominal wall on the right. This is probably related to prior surgery. No evidence of an abscess. IMPRESSION: 1. Bilateral nonobstructing renal calculi. Findings within the right kidney presumed to be secondary to the prior surgery. 2. Other findings as discussed above. [id number] [facility]
== END 2018-05-15 02:39 | disposition home or self-care (01) ==
LOC: LB.ED 00:16
DX: T81.4XXA Infection following a procedure, initial encounter (principal); C64.9 Malignant neoplasm of unspecified kidney, except renal pelvis; Z79.899 Other long term (current) drug therapy; E78.00 Pure hypercholesterolemia, unspecified; K21.9 Gastro-esophageal reflux disease without esophagitis; Z87.442 Personal history of urinary calculi; Z90.5 Acquired absence of kidney
CPT/HCPCS: 36415; 74150; 85025; 87070; 87077; 87186; 87205; 99284-25

== ENCOUNTER 2018-12-18 08:40 | Emergency (ER) | payer MEDICAID ==
[2013-07-23 09:47] VITALS: BP 134/78
[2018-12-18] MEDS ORDERED: Sulfamethoxazole/Trimethoprim 800-160 MG Tab ONE (09:00)
[2018-12-18] MEDS ORDERED: Phenazopyridine 100 MG Tab ONE (09:00)
[2018-12-18 09:01] VITALS: BP 126/70
--- NOTE | 2018-12-18 09:47 | EDM.PDOC ---
ED HPI GENERAL MEDICAL PROBLEM - General Chief Complaint: General Stated Complaint: bladder pain Time Seen by Provider: 12/18/18 08:45 Source of Information: Reports: Patient History Limitations: Reports: No Limitations - History of Present Illness INITIAL COMMENTS - FREE TEXT/NARRATIVE: According to patient she has been having increased frequency of urination for past 7-10 days. But over the past 2 days she has been having suprapubic cramping and pain. No fever or chills. No nausea or vomiting. No back pain. Pt has not been drinking fluids, drinks 3 glass of water daily. No vaginal discharge, but every time she urinates gets pain in the vaginal area where she urinates and the pain shots into her bladder like a spasm. No sexual contact in the past 2 wks.. Onset Date: 12/11/18 Duration: Hour(s):, Week(s): (1) Location: Reports: Abdomen Quality: Reports: Ache Severity: Moderate Improves with: Reports: None Worsens with: Reports: None Associated Symptoms: Denies: Confusion, Chest Pain, Cough, Diaphoresis, Fever/ Chills, Headaches, Nausea/Vomiting, Rash, Seizure, Shortness of Breath, Syncope , Weakness - Related Data Allergies Allergy/AdvReac Type Severity Reaction Status Date / Time No Known Allergies Allergy Verified 10/04/18 16:04 Home Meds: Home Meds Escitalopram [Lexapro] 10 mg PO DAILY 07/08/13 [History] Hydrochlorothiazide 25 mg PO DAILY 07/23/13 [History] Minocycline [Minocin] 100 mg PO DAILY 07/23/13 [History] Pravastatin Sodium 20 mg PO QPM 07/16/17 [History] Omeprazole 20 mg PO ACBREAKFAST 10/04/18 [History] Varenicline [Chantix] 1 mg PO BID 10/04/18 [History] Past Medical History Cardiovascular History: Reports: High Cholesterol Gastrointestinal History: Reports: GERD Genitourinary History: Reports: Renal Calculus DATA ENTRY History: Reports: , Other (See Below) Other DATA ENTRY History: IUD in place Musculoskeletal History: Reports: Back Pain, Chronic, Other (See Below) Other Musculoskeletal History: carpal tunnel syndrome Psychiatric History: Reports: Anxiety Oncologic (Cancer) History: Reports: Renal Dermatologic History: Reports: Melanoma, Other (See Below) Other Dermatologic History: acne, "some skin cancers removed" - Past Surgical History HEENT Surgical History: Reports: Other (See Below) Other HEENT Surgeries/Procedures: Submandibular gland removed GI Surgical History: Reports: None Female Surgical History: Reports: Lithotripsy/ESWL, Other (See Below) Other Female Surgeries/Procedures: kidney CA with partial kidney removal Musculoskeletal Surgical History: Reports: Carpal Tunnel Other Musculoskeletal Surgeries/Procedures:: left wrist pain numbness carpel tunnel syndrome, Bilat Carpal Tunnel Release Oncologic Surgical History: Reports: None, Lumpectomy, Other (See Below) Other Oncologic Surgeries/Procedures: "some skin cancer removed", Marker in left breast implanted with lumpectomy Social & Family History - Family History Family Medical History: Noncontributory - Caffeine Use Caffeine Use: Reports: Coffee, Soda, Tea ED ROS GENERAL - Review of Systems Review Of Systems: See Below Constitutional: Denies: Fever, Chills HEENT: Denies: Rhinitis, Throat Pain, Throat Swelling Respiratory: Denies: Shortness of Breath, Cough, Sputum Cardiovascular: Denies: Chest Pain, Lightheadedness GI/Abdominal: Reports: Abdominal Pain. Denies: Constipation, Diarrhea, Nausea, Vomiting : Reports: Frequency, Urgency. Denies: Dysuria Musculoskeletal: Denies: Joint Pain, Joint Swelling Skin: Denies: Bruising, Pruritis, Rash Neurological: Denies: Confusion, Dizziness, Headache ED EXAM, GENERAL - Physical Exam Exam: See Below Exam Limited By: No Limitations General Appearance: Alert, WD/WN, No Apparent Distress Eye Exam: Bilateral Eye: EOMI, PERRL Ears: Normal External Exam, Normal Canal, Hearing Grossly Normal, Normal TMs Ear Exam: Bilateral Ear: Auricle Normal, Canal Normal, TM normal Nose: Normal Inspection, Normal Mucosa, No Blood Throat/Mouth: Normal Inspection, Normal Lips, Normal Teeth, Normal Gums, Normal Oropharynx, Normal Voice, No Airway Compromise Head: Atraumatic, Normocephalic Neck: Normal Inspection, Supple, Non-Tender, Full Range of Motion Respiratory/Chest: No Respiratory Distress, Lungs Clear, Normal Breath Sounds, No Accessory Muscle Use, Chest Non-Tender Cardiovascular: Normal Peripheral Pulses, Regular Rate, Rhythm, No Edema, No Gallop, No JVD, No Murmur, No Rub GI/Abdominal: Normal Bowel Sounds, Soft, No Mass, Tender (suprapubic discomfort) . No: Guarding, Rigid, Rebound Extremities: Normal Inspection, Normal Range of Motion, Non-Tender, Normal Capillary Refill, No Pedal Edema Neurological: Alert, Oriented Course - Vital Signs Text/Narrative:: Pt's CBC is normal. Her UA is moderate blood 10-20 WBCs, She has acute UTI. Pt appears to have acute cystitis urethritis from her history. I have empirically covered her with Bactrim DS 1 PO bid for 7 days. Also pyridium 100mg 3 times daily for urethral pain. Side effects discussed. Rest and hydration. Atleast 1500 cc of fluids. Symptoms should improve in 1-2 days. If symptoms worsen followup in clinic. Last Recorded V/S: Last Vital Signs Temp 98.0 F 12/18/18 08:59 Pulse 62 12/18/18 08:59 Resp BP 126/70 12/18/18 08:59 Pulse Ox 99 12/18/18 08:59 - Orders/Labs/Meds Labs: Laboratory Tests 12/18/18 12/18/18 Range/Units 08:57 09:10 WBC 10.7 (4.0-11.0) K/uL RBC 4.65 (3.80-5.80) M/uL Hgb 14.3 (11.5-16.5) g/dL Hct 41.9 (37.0-47.0) % MCV 90 (76-96) fL MCH 30.8 (27.0-32.0) pg MCHC 34.1 (31.0-35.0) g/dL RDW 12.6 (11.0-16.0) % Plt Count 240 (150-500) K/uL MPV 10.1 H (6.0-10.0) fL Neut % (Auto) 66.3 (45.0-70.0) % Lymph % (Auto) 23.6 (20.0-40.0) % [place] % (Auto) 7.6 (3.0-10.0) % Eos % (Auto) 2.2 (1.0-5.0) % Baso % (Auto) 0.3 (0.0-0.5) % Neut # (Auto) 7.07 (2.00-7.50) K/uL Lymph # (Auto) 2.51 (1.50-4.00) K/uL [place] # (Auto) 0.81 H (0.20-0.80) K/uL Eos # (Auto) 0.23 (0.04-0.40) K/uL Baso # (Auto) 0.03 (0.02-0.10) K/uL Urine Color Yellow Urine Appearance Slightly cloudy (CLEAR) Urine pH 6.0 (5.0-8.0) Ur Specific [place] 1.025 (1.003-1.030) Urine Protein 30 H (NEGATIVE) mg/dL Urine Glucose (UA) Negative (NEGATIVE) mg/dL Urine Ketones Negative (NEGATIVE) mg/dL Urine Occult Blood Moderate H (NEGATIVE) Urine Nitrite Negative (NEGATIVE) Urine Bilirubin Negative (NEGATIVE) Urine Urobilinogen 0.2 (0.2-1.0) E.U./dL Ur Leukocyte Esterase Negative (NEGATIVE) Urine RBC 40-50 H /HPF Urine WBC 10-20 H /HPF Ur Squamous Epith Cells Many /HPF Urine Bacteria Few /HPF Departure - Departure Time of Disposition: 10:00 Disposition: Home, Self-Care 01 Condition: Fair Clinical Impression: Cystitis - Discharge Information *PRESCRIPTION DRUG MONITORING PROGRAM REVIEWED*: Not Applicable *COPY OF PRESCRIPTION DRUG MONITORING REPORT IN PATIENT JANUARY: Not Applicable Referrals: PCP,None [Primary Care Provider] - Forms: ED Department Discharge Additional Instructions: Pt's CBC is normal. Her UA is moderate blood 10-20 WBCs, She has acute UTI. Pt appears to have acute cystitis urethritis from her history. I have empirically covered her with Bactrim DS 1 PO bid for 7 days. Also pyridium 100mg 3 times daily for urethral pain. Side effects discussed. Rest and hydration. Atleast 1500 cc of fluids. Symptoms should improve in 1-2 days. If symptoms worsen followup in clinic. - Problem List & Annotations (1) Cystitis SNOMED Code(s): 56067540 Code(s): N30.90 - CYSTITIS, UNSPECIFIED WITHOUT HEMATURIA Status: Acute Current Visit: Yes - Problem List Review Problem List Initiated/Reviewed/Updated: Yes - Assessment/Plan Assessment:: Cystitis with urethritis Plan: Pt's CBC is normal. Her UA is moderate blood 10-20 WBCs, She has acute UTI. Pt appears to have acute cystitis urethritis from her history. I have empirically covered her with Bactrim DS 1 PO bid for 7 days. Also pyridium 100mg 3 times daily for urethral pain. Side effects discussed. Rest and hydration. Atleast 1500 cc of fluids. Symptoms should improve in 1-2 days. If symptoms worsen followup in clinic.
== END 2018-12-18 10:05 | disposition home or self-care (01) ==
LOC: LB.ED 08:40
DX: N30.91 Cystitis, unspecified with hematuria (principal); Z79.899 Other long term (current) drug therapy
CPT/HCPCS: 36415; 81001; 85025; 99283; A9270-GY

== ENCOUNTER 2024-02-07 13:26 | Emergency (ER) | payer MEDICAID ==
[2024-02-07] MEDS: Aspirin 81 MG Tab.Chew PO ONE (13:33)
[2024-02-07] MEDS ORDERED: Nitroglycerin 0.4 MG Tab.SL SL ONE (13:38)
[2024-02-07] MEDS: Ondansetron 4 MG Tab.DIS PO ONE (13:39)
[2024-02-07] MEDS: Nitroglycerin 0.4 MG Tab.SL SL ONE (13:39)
[2024-02-07] MEDS: Ondansetron 4 MG Tab.DIS ONE (13:43)
[2024-02-07] MEDS ORDERED: Naloxone 2 MG/2 ML Syringe IVPUSH PRN (13:52)
[2024-02-07] MEDS: Sodium Chloride 0.9% 1,000 ML IV ONE (13:52)
[2024-02-07] MEDS: HYDROmorphone 2 MG/ML Syringe IVPUSH ONE (13:55)
[2024-02-07 13:58] LABS: BASOPHILS ABSOLUTE AUTO 0.03 K/uL (0.02-0.10); BASOPHILS PERCENT AUTO 0.2 % (0.0-0.5); EOSINOPHILS ABSOLUTE AUTO 0.01 K/uL (0.04-0.40); EOSINOPHILS PERCENT AUTO 0.1 % (1.0-5.0); HEMOGLOBIN 14.6 g/dL (11.5-16.5); LYMPHOCYTES ABSOLUTE AUTO 1.42 K/uL (1.50-4.00); LYMPHOCYTES PERCENT AUTO 11.5 % (20.0-40.0); MEAN CORPUSCULAR HEMOGLOBIN 30.2 pg (27.0-32.0); MEAN CORPUSCULAR VOLUME 89 fL (76-96); MEAN PLATELET VOLUME 10.2 fL (6.0-10.0); MONOCYTES ABSOLUTE AUTO 0.44 K/uL (0.20-0.80); MONOCYTES PERCENT AUTO 3.5 % (3.0-10.0); NEUTROPHILS PERCENT AUTO 84.7 % (45.0-70.0); PLATELET COUNT,PLT 261 K/uL (150-500); RED BLOOD CELL COUNT 4.83 M/uL (3.80-5.80); RED CELL DISTRIBUTION WIDTH 12.3 % (11.0-16.0); WHITE BLOOD CELL COUNT,WBC 12.4 K/uL (4.0-11.0)
[2024-02-07] MEDS: Ondansetron 4 MG/2 ML SDV IVPUSH ONE (14:00)
[2024-02-07] MEDS: HYDROmorphone 2 MG/ML Syringe ONE (14:00)
[2024-02-07 14:13] LABS: INR 0.9 (1.0-3.5); PTT,PARTIAL THROMBOPLSTIN TIME 26.8 SECONDS (24.4-33.2)
[2024-02-07 14:14] LABS: PROTHROMBIN TIME 9.7 sec (9.0-11.5)
[2024-02-07] MEDS: Ondansetron 4 MG/2 ML SDV ONE (14:15)
[2024-02-07 14:16] LABS: ALBUMIN 3.5 g/dL (3.4-5.0); ANION GAP 12.6 mmol/L (5.0-15.0); BILIRUBIN TOTAL 0.5 mg/dL (0.0-1.0); CALCIUM 8.7 mg/dL (8.5-10.1); CARBON DIOXIDE,CO2 27.5 mmol/L (21.0-32.0); CREATININE 0.8 mg/dL (0.55-1.02); EST CRCL DRUG DOSING (CG) 75.26 mL/min; POTASSIUM,K 4.1 mmol/L (3.5-5.1); PROTEIN TOTAL,TP 7.1 g/dL (6.4-8.2)
[2024-02-07 14:18] LABS: LIPASE 41 U/L (16-77)
[2024-02-07 14:33] LABS: TROPONIN I HIGH SENSITIVITY < 4.0 pg/ml (<=60.4)
[2024-02-07 14:44] VITALS: PULSE 57
[2024-02-07] MEDS: Levofloxacin/Dextrose 5%-Water 500 MG in Levofloxacin/Dextrose 5%-Water 100 ML IV ONE (15:43)
[2024-02-07 16:34] VITALS: BP 153/71
== END 2024-02-07 16:44 | disposition home or self-care (01) ==
LOC: LB.ED 13:26
DX: J18.9 Pneumonia, unspecified organism (principal); K21.9 Gastro-esophageal reflux disease without esophagitis; Z79.899 Other long term (current) drug therapy
CPT/HCPCS: 36415; 71045; 71250; 80053; 83690; 84484; 85025; 85379; 85610; 85730; 93005; 96361; 96365; 96375; 99285-25; A9270-GY; J1170; J1956; J2405; J7030; Q0162

== ENCOUNTER 2024-10-01 13:39 | Emergency (ER) | payer MEDICAID ==
[2024-10-01] MEDS: Ondansetron 4 MG/2 ML SDV IVPUSH ONE (14:01)
[2024-10-01] MEDS: Albuterol/Ipratropium 3.0-0.5 MG/3 ML Neb Soln NEB PRN (14:04)
[2024-10-01 14:22] LABS: BASOPHILS ABSOLUTE AUTO 0.02 K/uL (0.02-0.10); BASOPHILS PERCENT AUTO 0.1 % (0.0-0.5); EOSINOPHILS ABSOLUTE AUTO 0.11 K/uL (0.04-0.40); EOSINOPHILS PERCENT AUTO 0.7 % (1.0-5.0); HEMATOCRIT 48.8 % (37.0-47.0); HEMOGLOBIN 16.7 g/dL (11.5-16.5); LYMPHOCYTES ABSOLUTE AUTO 2.22 K/uL (1.50-4.00); LYMPHOCYTES PERCENT AUTO 13.4 % (20.0-40.0); MEAN CORPUSCULAR HEMOGLOBIN 30.4 pg (27.0-32.0); MEAN CORPUSCULAR HGB CONC 34.2 g/dL (31.0-35.0); MEAN CORPUSCULAR VOLUME 89 fL (76-96); MONOCYTES ABSOLUTE AUTO 0.73 K/uL (0.20-0.80); MONOCYTES PERCENT AUTO 4.4 % (3.0-10.0); NEUTROPHILS ABSOLUTE AUTO 13.43 K/uL (2.00-7.50); NEUTROPHILS PERCENT AUTO 81.4 % (45.0-70.0); PLATELET COUNT,PLT 273 K/uL (150-500); RED BLOOD CELL COUNT 5.49 M/uL (3.80-5.80); RED CELL DISTRIBUTION WIDTH 12.6 % (11.0-16.0); WHITE BLOOD CELL COUNT,WBC 16.5 K/uL (4.0-11.0)
[2024-10-01 14:39] LABS: ANION GAP 11.2 mmol/L (5.0-15.0); BLOOD UREA NITROGEN,BUN 9 mg/dL (8-26); BUN/CREATININE RATIO 10.3 (6-25); CALCIUM 8.8 mg/dL (8.5-10.1); CARBON DIOXIDE,CO2 28.6 mmol/L (21.0-32.0); CHLORIDE,CL 102 mmol/L (98-107); CREATININE 0.87 mg/dL (0.55-1.02); ESTIMATED GFR 79 mL/min (>60); GLUCOSE RANDOM 127 mg/dL (74-100); POTASSIUM,K 3.8 mmol/L (3.5-5.1); SODIUM,NA 138 mmol/L (136-145)
[2024-10-01 14:55] LABS: TROPONIN I HIGH SENSITIVITY < 4.0 pg/ml (<=60.4)
[2024-10-01] MEDS ORDERED: Amoxicillin 500 MG Cap ONE (15:00)
[2024-10-01 15:07] LABS: INFLUENZA A NAA NEGATIVE (NEGATIVE); INFLUENZA B NAA NEGATIVE (NEGATIVE); RESPIRATORY SYNCYTIAL VIR NAA NEGATIVE (NEGATIVE)
[2024-10-01 15:08] LABS: CORONAVIRUS COVID-19 NAA NEGATIVE (NEGATIVE)
[2024-10-01] MEDS: GI Cocktail Oral Solution 30 ML PO ONE (15:20)
[2024-10-01 15:55] VITALS: BP 153/89; PULSE 73
== END 2024-10-01 15:25 | disposition home or self-care (01) ==
LOC: LB.ED 13:39
DX: J18.9 Pneumonia, unspecified organism (principal); K21.9 Gastro-esophageal reflux disease without esophagitis; F17.210 Nicotine dependence, cigarettes, uncomplicated; Z79.899 Other long term (current) drug therapy
CPT/HCPCS: 0241U; 36415; 71045; 80048; 84484; 85025; 85379; 93005; 94640; 96374; 99285-25; A9270-GY; J2405; J7620